=== PATIENT | female | born 1990 | race Caucasian/White ===

== ENCOUNTER → 2018-06-30 10:25 | Outpatient (CLI) | payer MEDICAID, SELFPAY ==
[2018-07-04 11:22] LABS: HPV Reflexed? NOT INDICATED
== END ==
PROVIDERS: Visit Provider Obstetrics & Gynecology
DX: Z12.4 Encounter for screening for malignant neoplasm of cervix (principal); Z01.419 Encounter for gynecological examination (general) (routine) without abnormal findings
CPT/HCPCS: 87624; 88175; G0145

== ENCOUNTER → 2020-05-06 12:51 | Outpatient (CLI) | payer MEDICAID, SELFPAY ==
[2016-05-13 19:23] VITALS: BMI 36.3
[2020-05-06 14:17] LABS: Absolute Neutrophil Count 7.3 X10^3/uL (2.0-7.7); Basophil# 0.05 X10^3/uL; Basophil% 0.5 % (0-1); Eosinophil# 0.09 X10^3/uL; Eosinophils% 0.9 % (0-5); Hematocrit 40.3 % (37-47); Hemoglobin 13.2 g/dL (12.0-15.0); Lymphocyte % 21.3 % (19-41); Mean Corp Hgb Conc 32.8 g/dL (32-36); Mean Corpuscular Hgb 29.3 pg (27.0-32.0); Mean Corpuscular Volume 89.4 fL (81-99); Mean Platelet Vol. 10.8 fl (6.2-12.0); Monocyte# 0.69 X10^3/uL; Monocyte% 6.7 % (0-10); NRBC Flagged by Analyzer 0 % (0-5); Neutrophil % 70.4 % (47-70); Platelet Count 313 K/mm3 (150-450); RBC Distribution Width CV 12.4 % (11.6-14.6); RBC Distribution Width SD 40.6 fl (35.1-43.9); Red Blood Count 4.51 M/mm3 (4.2-5.4); White Blood Count 10.4 K/mm3 (4.4-11.0)
[2020-05-06 14:24] LABS: Color, Urine Yellow (Yellow); Glucose, Dipstick Normal (Normal); Ketone-Dipstick Negative (Negative); Leukocyte Esterase-Dipstick Negative /ul (Negative); Nitrite-Dipstick Negative (Negative); Occult Blood-Urine Negative /ul (Negative); Protein-Dipstick Negative (Negative); Specific Gravity, Urine 1.005 (1.002-1.030); Urine Bilirubin Dipstick Negative (Negative); Urine Clarity Clear (Clear); Urine Urobilinogen Normal (Normal)
[2020-05-06 14:25] LABS: Amphetamine Urine VISTA NEGATIVE (<1000 ng/mL); Barbiturate Urine VISTA NEGATIVE (< 200 ng/mL); Benzodiazepine Urine VISTA NEGATIVE (< 200 ng/mL); Cocaine Urine VISTA NEGATIVE (< 300 ng/mL); Ecstacy Urine VISTA NEGATIVE (< 500 ng/mL); Methadone Urine VISTA NEGATIVE (< 300 ng/mL); PCP Urine VISTA NEGATIVE (< 25 ng/mL); THC Urine VISTA POSITIVE (< 50 ng/mL); Vista UDS pH Range 6
[2020-05-06 14:35] LABS: Thyroid Stim Hormone (TSH) 1.02 uIU/mL (0.358-3.74)
[2020-05-06 15:14] LABS: HIV - WCH Non-Reactive (Nonreactive); Hepatitis B Surface Antigen Non-Reactive (Nonreactive); Hepatitis C Antibody Non-Reactive (Nonreactive)
[2020-05-08 03:06] LABS: Chlamydia By Nucleic Acid AMP Negative (Negative)
[2020-05-08 06:28] LABS: Prenatal RPR NONREACTIVE (NONREACTIVE)
[2020-05-08 06:29] LABS: Gonococcus By Nucleic Acid AMP Negative (Negative)
== END ==
PROVIDERS: Visit Provider Obstetrics & Gynecology
DX: Z11.3 Encounter for screening for infections with a predominantly sexual mode of transmission (principal)
CPT/HCPCS: 36415; 80307; 81002; 82306; 84443; 85025; 86703; 86762; 86803; 87340; 87491; 87591

== ENCOUNTER → 2020-09-02 15:40 | Outpatient (CLI) | payer MEDICAID, SELFPAY ==
[2016-05-13 19:23] VITALS: BMI 36.3
[2020-09-02 17:55] LABS: Hematocrit 35.8 % (37-47); Hemoglobin 11.4 g/dL (12.0-15.0); Mean Corp Hgb Conc 31.8 g/dL (32-36); Mean Corpuscular Hgb 29.4 pg (27.0-32.0); Mean Corpuscular Volume 92.3 fL (81-99); Mean Platelet Vol. 11.1 fl (6.2-12.0); Platelet Count 243 K/mm3 (150-450); RBC Distribution Width CV 13.6 % (11.6-14.6); Red Blood Count 3.88 M/mm3 (4.2-5.4); White Blood Count 9.8 K/mm3 (4.4-11.0)
[2020-09-02 17:58] LABS: Glucose Challenge Gest 1H 50g 111 mg/dL (70-140)
== END ==
PROVIDERS: Visit Provider Obstetrics & Gynecology
DX: Z34.82 Encounter for supervision of other normal pregnancy, second trimester (principal)
CPT/HCPCS: 36415; 82950; 85027

== ENCOUNTER → 2020-10-17 | Outpatient (CLI) | payer MEDICAID, SELFPAY | END | disposition home or self-care (01) | LOC: LABSPEC 11:16 | PROVIDERS: Visit Provider Obstetrics & Gynecology | DX: N30.90 Cystitis, unspecified without hematuria (principal) | CPT/HCPCS: 87086; 87088 ==

== ENCOUNTER → 2020-11-12 | Outpatient (CLI) | payer MEDICAID, SELFPAY ==
[2016-05-13 19:23] VITALS: BMI 36.3
== END | disposition home or self-care (01) ==
LOC: LABSPEC 13:18
PROVIDERS: Visit Provider Obstetrics & Gynecology
DX: Z36.85 Encounter for antenatal screening for Streptococcus B (principal)
CPT/HCPCS: 87081

== ENCOUNTER → 2020-11-26 14:07 | Outpatient (CLI) | payer MEDICAID, SELFPAY | PROVIDERS: Referring Provider Student in an Organized Health Care Education/Training Program; Visit Provider Student in an Organized Health Care Education/Training Program | DX: Z03.818 Encounter for observation for suspected exposure to other biological agents ruled out (principal) | CPT/HCPCS: 87635; C9803; U0002 ==

== ENCOUNTER 2020-12-04 11:25 | Inpatient (IN) | payer MEDICAID, SELFPAY ==
[2016-05-13 19:23] VITALS: BMI 36.3
[2020-12-04] VITALS (39 sets, daily range): BP systolic 95–167; BP diastolic 57–98; PULSE 67–185; TEMP 36.4–37.2; O2SAT 82–100; BMI 35.9
[2020-12-04] MEDS: 0.9% Saline Lock 10 ML Syringe IV (12:12)
[2020-12-04 12:18] LABS: Absolute Neutrophil Count 5.9 X10^3/uL (2.0-7.7); Basophil# 0.02 X10^3/uL; Basophil% 0.2 % (0-1); Eosinophils% 1.1 % (0-5); Hemoglobin 11.5 g/dL (12.0-15.0); Mean Corp Hgb Conc 31.9 g/dL (32-36); Mean Corpuscular Hgb 27.4 pg (27.0-32.0); Mean Corpuscular Volume 85.7 fL (81-99); Monocyte# 0.89 X10^3/uL; Monocyte% 9.7 % (0-10); NRBC Flagged by Analyzer 0 % (0-5); Neutrophil # 5.85 X10^3/uL (2.7-7.7); Neutrophil % 63.7 % (47-70); Platelet Count 271 K/mm3 (150-450); RBC Distribution Width SD 43.4 fl (35.1-43.9); White Blood Count 9.2 K/mm3 (4.4-11.0)
[2020-12-04] MEDS: miSOPROStol 25 MCG TABLET VAGINAL (12:43)
[2020-12-04 13:21] LABS: Amphetamine Urine VISTA NEGATIVE (<1000 ng/mL); Barbiturate Urine VISTA NEGATIVE (< 200 ng/mL); Benzodiazepine Urine VISTA NEGATIVE (< 200 ng/mL); Cocaine Urine VISTA NEGATIVE (< 300 ng/mL); Ecstacy Urine VISTA NEGATIVE (< 500 ng/mL); Methadone Urine VISTA NEGATIVE (< 300 ng/mL); PCP Urine VISTA NEGATIVE (< 25 ng/mL); THC Urine VISTA POSITIVE (< 50 ng/mL); Vista UDS pH Range 6
--- NOTE | 2020-12-04 16:53 | HP.PCM_ITS ---
History and Physical Date of Admission: 12/04/20 HPI: 30-year-old G2, P1 at 39/5 weeks, AMARA 12/06/2020 by LMP, admitted for induction of labor for polyhydramnios at term. Denies leaking of fluid, vaginal bleeding, regular contractions. Reports movement. This is complicated by: Polyhydramnios, resolved on exam yesterday, THC use Obstetrical History G1:05/15/16 VAVD female (SHM) G2: current Past Medical History Anxiety Medications PNV Past Surgical History [place] teeth extraction Social History Tobacco use: Former Alcohol use: Denies Illicit drug use: THC use Labs Blood type: O+ Rubella: Immune Hep B/C: Negative/negative HIV: Negative RPR: Nonreactive 1 hour GTT: Within normal limits GBS: neg 3/10 Allergies NKDA Review of Systems General: alert and oriented HEENT: _denies change of vision Heart/lungs: _denies CP, SOB GI: _denies nausea, vomiting, dysuria, diarrhea MSK: _denies calf pain, tenderness Physical Exam Vital Signs Temp Pulse BP Pulse Ox 12/04/20 16:44 85 131/90 H 12/04/20 12:24 90 120/76 12/04/20 12:18 98.9 F 99 General: a&o x3, NAD HEENT: normocephalic, atraumatic Cardio: no JVD Resp: no increased work in breathing Abdomen: soft, gravid, nontender Extremities: _minimal-moderate edema CE: 3 cm, AROM clear fluids FHT: 115/moderate variability/+ accelerations/no decelerations [place]: Irregular Labs Laboratory Results - last 24 hr 12/04/20 12/04/20 12/04/20 11:50 11:50 12:30 WBC 9.2 RBC 4.20 Hgb 11.5 L Hct 36.0 L MCV 85.7 MCH 27.4 MCHC 31.9 L RDW Std Deviation 43.4 RDW Coeff of Renato 14.0 Plt Count 271 MPV 11.0 Immature Gran % (Auto) 0.300 Neut % (Auto) 63.7 Lymph % (Auto) 25.0 [place] % (Auto) 9.7 Eos % (Auto) 1.1 Baso % (Auto) 0.2 Absolute Neuts (auto) 5.9 Absolute Lymphs (auto) 2.30 Nucleated RBC % 0 Urine Opiates Screen NEGATIVE Urine Methadone Screen NEGATIVE Ur Barbiturates Screen NEGATIVE Ur Phencyclidine Scrn NEGATIVE Ur Amphetamines Screen NEGATIVE U Methamphetamin-MDMA NEGATIVE U Benzodiazepines Scrn NEGATIVE Urine Cocaine Screen NEGATIVE U Cannabinoids Screen POSITIVE H Ur Drug Screen Comment Blood Type O POSITIVE Antibody Screen NEGATIVE Assessment & Plan 30-year-old G2, P1 at 39/5 weeks, AMARA 12/06/2020 by LMP, admitted for induction of labor for polyhydramnios at term. This is complicated by: Polyhydramnios, resolved on exam yesterday, THC use Admit to L&D - Routine labor orders -Cytotec injection, now to switch to Pitocin - GBS negative - CEFM - Anesthesia to see - THC use
[2020-12-04] MEDS: Lactated Ringers 1,000 ML 200 ML IV ×2 (17:15→21:10)
[2020-12-04] MEDS: Oxytocin 30 units/NS 500 ml 30 UNITS/500 ML IV.SOLN IV (17:18)
[2020-12-04] MEDS: Lactated Ringers 500 ML 999 ML IV ×2 (19:05→20:40)
[2020-12-04] MEDS: fentaNYL-bupivacaine (epidural) 100 ML BAG EPIDURAL (20:08)
[2020-12-04] MEDS: Oxytocin 30 units/NS 500 ml 30 UNITS/500 ML IV.SOLN 334 UNITS IV (22:29)
--- NOTE | 2020-12-04 22:39 | PCM.OPRPT ---
Vaginal Delivery Date of Procedure: 12/04/20 Pre-Operative Diagnosis: Term, nonreassuring heart tones Post-Operative Diagnosis: Term, nonreassuring heart tones Surgery/ Procedure Performed: Vacuum Assisted Vaginal Delivery Type of Anesthesia: Epidural Description of Procedure: Procedure: Vacuum-assisted vaginal delivery Surgeon: Jaquan Collier MD Anesthesia: Epidural EBL: 300 cc Patient is: None Findings male infant vertex position, LOT. Apgars 9/9. No lacerations noted. Consent: Patient arrived for induction of labor at term with polyhydramnios found to have recurrent lates noted to be complete and +2 station. Began pushing with contractions found to be making little progress and noted to have recurrent late decelerations along with prolonged decelerations. head was palpated to be in LOT position +2 station. Pelvis was felt to be appropriate for vaginal delivery. The epidural was adequate for pain relief. Discussed vacuum delivery risks with the patient. The patient desired to proceed with the vacuum delivery and understood the risks such as but not limited to cephalhematoma or shoulder dystocia. The process of the vacuum delivery was also explained. Procedure: Bladder was emptied for 25 cc via straight catheter. Vaginal examination reconfirmed LOT position +2 station. Kiwi vacuum device was applied over the sagittal suture and about 3 cm in front of the posterior fontanelle toward the face. Vacuum pressure was created. The edge of the vacuum cup was carefully examined and no maternal tissue was entrapped under the cup. Gentle horizontal traction along the pelvic axis in coordination with uterine contraction maternal pushing was applied. After 1 pull descent was noted. The handle of vacuum device was gradually elevated when the perineum began to bulge. The cup did not pop off of the head throughout the procedure. The cup was removed after the head delivery. Head and shoulders were delivered with ease. Placenta was delivered via fundal traction and cord massage. The cervix and vaginal wall were thoroughly examined. No lacerations were noted. The was examined after delivery. No visible lacerations or bruises were noted.
--- NOTE | 2020-12-04 22:47 | DCINST_ITS ---
<Jaquan Collier - Last Filed: 12/04/20 22:47> Discharge Diet: No Restrictions Discharge Activity: Return to Normal Activity, May Drive, May Shower May resume sexual activity in: 4-6 weeks Weight Bearing Status: Weight bearing as tolerated Call your doctor if your incision/area has: Continuous Slow Oozing, Foul Smelling Discharge Call your doctor if you observe: Fever of 101 or Higher, Shortness of breath, Chest pain Additional Instructions: If you experience any of the following, contact your healthcare provider. * Bleeding that soaks a pad every hour for 2 hours * Fever 100.4 or higher * Unrelieved incision or abdominal pain * Swelling, redness, discharge or bleeding from your incision or episiotomy site * Your incision begins to separate * Problems urinating (including inability to urinate or burning while urinating). * Visual changes * Severe headache * Flu-like symptoms * Pain or redness in one of both of your breasts * Pain, warmth, tenderness or swelling in your legs, especially the calf area * Frequent nausea and vomiting * Symptoms of depression or anxiety If you experience any of the following, call 911 or go to the nearest Emergency Room. * Chest pain * Problems breathing * Seizure activity * Partial or complete paralysis of a body part, slurred speech, weakness or drooping of the face, or a sudden inability to walk or hold your balance Allergies/Adverse Reactions: Allergies No Known Allergies Allergy (Verified 12/04/20 12:04) Medications to take at Discharge Vit Calc,Iron,Folic [ Vitamins] 1 each PO DAILY 03/30/16 Please Follow Up With: Jaquan Collier MD When: 4 to 6 weeks Primary Care Physician: Care Physician,No Primary [Primary Care Provider] - Test Results: Test results from this visit will be discussed in further detail at your follow- up appointment, if applicable. <Ariadne Collier - Last Filed: 12/06/20 04:54> Additional Instructions: If you experience any of the following, contact your healthcare provider. * Bleeding that soaks a pad every hour for 2 hours * Fever 100.4 or higher * Unrelieved incision or abdominal pain * Swelling, redness, discharge or bleeding from your incision or episiotomy site * Your incision begins to separate * Problems urinating (including inability to urinate or burning while urinating). * Visual changes * Severe headache * Flu-like symptoms * Pain or redness in one of both of your breasts * Pain, warmth, tenderness or swelling in your legs, especially the calf area * Frequent nausea and vomiting * Symptoms of depression or anxiety If you experience any of the following, call 911 or go to the nearest Emergency Room. * Chest pain * Problems breathing * Seizure activity * Partial or complete paralysis of a body part, slurred speech, weakness or drooping of the face, or a sudden inability to walk or hold your balance Test Results: Test results from this visit will be discussed in further detail at your follow- up appointment, if applicable.
[2020-12-04] MEDS: Ibuprofen 600 MG Tablet PO (23:32)
[2020-12-05] VITALS (14 sets, daily range): BP systolic 116–134; BP diastolic 64–89; PULSE 77–94; RESP 16–18; TEMP 36.3–37.2; O2SAT 98
--- NOTE | 2020-12-05 04:22 | NURSING ---
Report received from Cesar Rincon RN
--- NOTE | 2020-12-05 07:35 | PN.OBGYN_ITS ---
Subjective: No overnight complaints. Pain well controlled. - Physical Exam Vitals/I&O's: Vital Signs Temp Pulse Resp BP Pulse Ox 97.7 F L 82 16 119/64 98 12/05/20 04:30 12/05/20 04:36 12/05/20 04:30 12/05/20 04:36 12/05/20 04:30 Oxygen Delivery Method Room Air Weight: 209 lb 7.026 oz Body Mass Index (BMI) 35.9 Intake and Output for Last 24 Hours 12/03/20 12/04/20 12/05/20 23:59 23:59 23:59 Intake Total 1908. 333 / 333 Output Total 400 / 400 Balance 1908.1908.23 -67 / -67 General: Alert, Oriented x3, Cooperative, No apparent distress HEENT: Atraumatic Oral: Moist Mucosa Neck: Supple Abdomen: Soft, Non Tender Extremities: No clubbing, No cyanosis, No edema Neurological: Neuro grossly intact Psych/Mental Status: Normal Affect, Appropriate, Alert and oriented to time, place, person, mood and affect Laboratory Results 12/04/20 11:50: WBC 9.2, RBC 4.20, Hgb 11.5 L, Hct 36.0 L, MCV 85.7, MCH 27.4, MCHC 31.9 L, RDW Std Deviation 43.4, RDW Coeff of Renato 14.0, Plt Count 271, MPV 11.0, Immature Gran % (Auto) 0.300, Neut % (Auto) 63.7, Lymph % (Auto) 25.0, [place] % (Auto) 9.7, Eos % (Auto) 1.1, Baso % (Auto) 0.2, Absolute Neuts (auto) 5.9, Absolute Lymphs (auto) 2.30, Nucleated RBC % 0 12/04/20 11:50: Blood Type O POSITIVE, Antibody Screen NEGATIVE 12/04/20 12:30: Urine Opiates Screen NEGATIVE, Urine Methadone Screen NEGATIVE, Ur Barbiturates Screen NEGATIVE, Ur Phencyclidine Scrn NEGATIVE, Ur Amphetamines Screen NEGATIVE, U Methamphetamin-MDMA NEGATIVE, U Benzodiazepines Scrn NEGATIVE, Urine Cocaine Screen NEGATIVE, U Cannabinoids Screen POSITIVE H, Ur Drug Screen Comment Current Medications Acetaminophen (Acetaminophen 500 Mg Tablet) 1,000 mg PO Q8H PRN PRN PRN Reason: Pain Score 1-3 Bisacodyl (Bisacodyl 10 Mg Suppository) 10 mg RC UD PRN PRN Reason: If no BM Dibucaine (Dibucaine 30 Gm Tube) 1 applic TOPICAL TID PRN PRN; Protocol PRN Reason: Discomfort Hydrocortisone (Hydrocortisone 2.5% Crm) 1 applic TOPICAL TID PRN PRN; Protocol PRN Reason: Discomfort Ibuprofen (Ibuprofen 600 Mg Tablet) 600 mg PO Q6H PRN PRN PRN Reason: Pain Score 1-3 Last Admin: 12/04/20 23:32 Dose: 600 mg Documented by: Ondansetron HCl (Ondansetron 4 Mg/2 Ml Vial) 4 mg IV Q4H PRN PRN PRN Reason: Nausea Senna/Docusate Sodium (Senna/Docusate Sodium 1 Tablet) 1 - 2 tablet PO DAILY PRN PRN PRN Reason: Constipation Simethicone (Simethicone 80 Mg Tablet) 80 mg PO PCHS PRN PRN Reason: Indigestion/Stomach pain Sodium Chloride (0.9% Saline Lock 10 Ml Syringe) 5 - 15 ml IV UD PRN PRN Reason: SALINE FLUSH Medical Necessity - Tobacco Use Smoking Status: Former smoker Assessment/Plan All Active Problems Polyhydramnios (Acute) 39 weeks gestation of (Acute) day 1 status post vacuum-assisted vaginal delivery for nonreassuring heart tones. Pain well controlled. Breast-feeding. Evening time delivery, likely home tomorrow.
[2020-12-05] MEDS: Ibuprofen 600 MG Tablet PO (08:00)
[2020-12-06] MEDS: Ibuprofen 600 MG Tablet PO (00:05)
[2020-12-06 02:24] VITALS: BP 128/88; PULSE 78; PULSE 81; RESP 16; O2SAT 99
--- NOTE | 2020-12-06 04:51 | PCM.PN.OB ---
Subjective: day 2. Patient feeling well. No complaints. - Physical Exam Vitals/I&O's: Vital Signs Temp Pulse Resp BP Pulse Ox 98.9 F 81 16 128/88 H 99 12/05/20 20:56 12/06/20 02:24 12/06/20 02:24 12/06/20 02:24 12/06/20 02:24 Oxygen Delivery Method Room Air Weight: 95 kg Body Mass Index (BMI) 35.9 Intake and Output for Last 24 Hours 12/04/20 12/05/20 12/06/20 23:59 23:59 23:59 Intake Total 1908.1908.23 333 / 333 Output Total 400 / 400 Balance 1908. / 1908.23 -67 / -67 General: Alert, Oriented x3, No apparent distress HEENT: Atraumatic, Normocephalic Neck: Supple Lungs: Normal air movement Cardiovascular: Regular rate Abdomen: Soft - Uterus 2 cm below umbilicus Extremities: No edema Neurological: Cranial nerves II-XII grossly intact Psych/Mental Status: Normal Affect, Appropriate, Alert and oriented to time, place, person, mood and affect Current Medications Acetaminophen (Acetaminophen 500 Mg Tablet) 1,000 mg PO Q8H PRN PRN PRN Reason: Pain Score 1-3 Bisacodyl (Bisacodyl 10 Mg Suppository) 10 mg RC UD PRN PRN Reason: If no BM Dibucaine (Dibucaine 30 Gm Tube) 1 applic TOPICAL TID PRN PRN; Protocol PRN Reason: Discomfort Hydrocortisone (Hydrocortisone 2.5% Crm) 1 applic TOPICAL TID PRN PRN; Protocol PRN Reason: Discomfort Ibuprofen (Ibuprofen 600 Mg Tablet) 600 mg PO Q6H PRN PRN PRN Reason: Pain Score 1-3 Last Admin: 12/06/20 00:05 Dose: 600 mg Documented by: Ondansetron HCl (Ondansetron 4 Mg/2 Ml Vial) 4 mg IV Q4H PRN PRN PRN Reason: Nausea Senna/Docusate Sodium (Senna/Docusate Sodium 1 Tablet) 1 - 2 tablet PO DAILY PRN PRN PRN Reason: Constipation Simethicone (Simethicone 80 Mg Tablet) 80 mg PO PCHS PRN PRN Reason: Indigestion/Stomach pain Sodium Chloride (0.9% Saline Lock 10 Ml Syringe) 5 - 15 ml IV UD PRN PRN Reason: SALINE FLUSH Medical Necessity - Tobacco Use Smoking Status: Former smoker Assessment/Plan All Active Problems Polyhydramnios (Acute) 39 weeks gestation of (Acute) 30-year-old day 2 status post vacuum-assisted vaginal delivery. Patient doing well without complaints. Breast-feeding. Home today.
[2020-12-06 07:26] VITALS: BP 140/86; PULSE 78; RESP 16; TEMP 36.9
[2020-12-06 07:27] VITALS: BP 140/86; PULSE 78
--- NOTE | 2020-12-06 11:10 | CASEMGMT ---
Social Work Assessment Labor and Delivery Unit Date of Referral: 12/04/2020 Time of Referral: 12:18 Referred By: Dr. Jaquan Collier Date of Intervention: 12/06/2020 Time of Intervention: 11:10 Reason for Referral: Mother of baby (MOB) with positive THC on admission to labor and delivery unit. History obtained from: MOB, Father of baby (FOB), medical chart, and nursing staff. Household composition: MOB (Harika Muniz) and FOB (Devin Muniz) live together in a private home with daughter Arielle Muniz age 4, FOB?s 9-year-old daughter that does not share maternity with this and Arielle. Along with FOB?s mother and FOB?s 17-year-old brother. Patient's parent/guardian status: MOB and FOB are and have been together for 9 years. MOB reports that was no planned but accepted. FOB and MOB both report a connection with infant. Medical History: MOB with vaginal delivery at 39 weeks. MOB prior to this infant, Otto Muniz. MOB with history of Anxiety and Depression. MOB with appropriate care visits. born on 12/04/2019 with apgars of 9 and 9 at 1min and 5min and weight of 3.64kg. to follow with Dr. Lanier in the community. MOB plans to bottle feed . Educational Status: MOB denies any issues with comprehension or understanding. Financial Status: MOB and FOB deny any financial concerns. Infant Supplies: MOB reports to have all needed infant supplies including a car seat and crib. Childcare/Caregiver(s): MOB plans to be primary caregiver for until returning to work. When MOB returns to work plan is for MOB?s mother to have children. Other children in the home are currently with MOB?s mother. Transportation: MOB denies any issues with transportation. Programs/Agencies Involved: MOB reports to receive foot stamps and to be connected with [facility]. Children Services/Legal Issues: MOB denies any children services involvement currently or in the past. Mental Health History: MOB reports history of Anxiety and Depression. MOB openly reports to have used THC to manage Anxiety during , ?it was the only thing that helped.? MOB denies any history of counseling or medications to manage mental health. This social media marketing analyst broached topic of counseling services and possibly exploring medication to manage mental health. MOB reports ?I am feeling good now.? MOB declining counseling and not sure about talking with doctor about medication management. Patient reports to currently not be using THC. MOB aware of positive THC results on admission to labor and delivery unit. This social media marketing analyst able to have conversation with MOB about signs and symptoms of depression. MOB reports to have a history of depression with first and to find positive support from FOB. MOB points to FOB and states ?he is my counselor.? FOB confirms by nodding head up and down in a ?yes.? MOB denies any suicidal thoughts or history of. MOB reports to have needs support in the community and to feel that MOB will reach out if ?I need to.? Substance Use History: MOB admits to THC as seen above. MOB reports plan to discontinue use of THC. MOB does plan to bottle feed infant and is aware of risk to infant of and using THC or any other substance. MOB reports that if MOB would return to using THC plan would be to not use around children and to leave children in the care of a responsible adult if MOB plans to use THC. MOB denies any other substance abuse/use. FOB also denies any substance abuse/use. There is no smoking in the home per MOB. Maternal and Infant Drug Screens: MOB with positive tox screen for THC on 12/04/2020 and 05/06/2020. with negative urine tox screen and currently pending meconium. PHQ9: MOB did not trigger. Family/Social Stressors: MOB reports current social stressor of FOB?s mother living with MOB and FOB as FOB?s mother has dementia. FOB reports plan for FOB?s mother to move into an assisted living but that a Medicaid waiver will need to be set up first. MOB and FOB both report to be hopeful that FOB?s mother will be transitioning to assisted living ?soon.? No other stressors identified. Support Systems: MOB reports positive support from family and friends. Depression and Anxiety/Shaken Baby/Safe Sleeping: MOB provided with resources on Depression/Anxiety, Shaken Baby, and Safe Sleeping as well as [facility] general resources. MOB responding appropriately to prompts for safe sleeping and shaken baby. ASSESSMENT: This social media marketing analyst met with MOB and FOB in room. Infant currently in nursery for testing. Plan is for to discharge to home with MOB and FOB. MOB and FOB report a connection to and to be ?excited? about discharge to home today. Active support and listening provided. Safe Plan of Care for related to substance use: MOB plans to discontinue THC but reports that if MOB would return to using THC plan would be to not use around the children and to continue with bottle feeding of . PLAN: Infant to discharge to home with MOB, FOB and other family members. Pending meconium. Will continue to follow and make referrals as indicated. Anastacia Mancera MSW, CONNIES
[2020-12-06 12:39] VITALS: BP 141/91; PULSE 97
[2020-12-06 12:40] VITALS: BP 141/80; PULSE 102; PULSE 97; RESP 16; TEMP 36.7; O2SAT 98
--- NOTE | 2020-12-08 13:35 | CASEMGMT ---
Social Work Telephone call to [facility], Silvina. Report due to MOB with positive tox screen on admission and during for Marijuana. This social service director with no other concerns identified. Currently pending meconium results for infant. Infant urine tox screen is negative. Silvina reports unable to open case until positive tox screen obtained for but will take the information down. Social work to continue to follow and make referrals as indicated. Anastacia Mancera MSW, BERTIN-S
== END 2020-12-06 12:50 | disposition home or self-care (01) | DRG 560 ==
PROVIDERS: Admitting Provider Obstetrics & Gynecology; Referring Provider Obstetrics & Gynecology; Visit Provider Obstetrics & Gynecology
DX: O40.3XX0 Polyhydramnios, third trimester, not applicable or unspecified (principal); O76 Abnormality in fetal heart rate and rhythm complicating labor and delivery; O99.324 Drug use complicating childbirth; F12.90 Cannabis use, unspecified, uncomplicated; O99.214 Obesity complicating childbirth; E66.01 Morbid (severe) obesity due to excess calories; Z87.891 Personal history of nicotine dependence; Z3A.39 39 weeks gestation of pregnancy; Z37.0 Single live birth
CPT/HCPCS: 59025; 59050; 80307; 85025; 86850; 86900; 86901; 99218; J7120; A4216; G0378

== ENCOUNTER → 2021-01-12 | Outpatient (CLI) | payer MEDICAID, SELFPAY ==
[2020-12-04 12:03] VITALS: BMI 35.9
[2021-01-14 16:47] LABS: HPV Reflexed? NOT INDICATED
== END | disposition home or self-care (01) ==
LOC: LABSPEC 11:28
PROVIDERS: Visit Provider Student in an Organized Health Care Education/Training Program
DX: Z12.4 Encounter for screening for malignant neoplasm of cervix (principal)
CPT/HCPCS: 88175; G0145

== ENCOUNTER 2022-12-27 11:59 | Day surgery (SDC) | payer MEDICAID, SELFPAY ==
[2022-12-21 11:02] LABS: Hematocrit 40.5 % (37-47); Mean Corp Hgb Conc 32.1 g/dL (32-36); Mean Corpuscular Volume 90.4 fL (81-99); Mean Platelet Vol. 10.8 fl (6.2-12.0); Platelet Count 294 K/mm3 (150-450); RBC Distribution Width CV 13.8 % (11.6-14.6); RBC Distribution Width SD 45.6 fl (35.1-43.9); Red Blood Count 4.48 M/mm3 (4.2-5.4); White Blood Count 8.4 K/mm3 (4.4-11.0)
[2022-12-27] VITALS (8 sets, daily range): BP systolic 103–118; BP diastolic 61–79; PULSE 65–85; RESP 16–18; TEMP 36.4–36.9; O2SAT 96–100; BMI 25.0
--- NOTE | 2022-12-27 | FALS_PTH ---
PATIENT: NEELIMA LAUREANO LOC: [facility] [place] U#:[id number] AGE/SX: 32/F ROOM: RE12/27/[address]: Dr. Jaquan Collier MD : 1990 BED: DIS: 12/27/2022 SPEC #: [id number] RECD: 12/27/22 16:24 STATUS: SUZI RESue #: [id number] TAYLOR: 12/27/22 00:[address]: Jaquan Collier DEPT: SURGICAL PATHOLOGY RECD BY: Jesus Encarnacion ENTERED: 12/28/22 09:29 SP TYPE: FALL TUBES OTHR DR: Jeff Stafford PA-C Tissues: Fallopian tube Procedures: Surgery Specimen Level IV HEADER OPERATION: Laparoscopic salpingectomy PRE-OP DIAGNOSIS: Sterilization TISSUE SUBMITTED: Fallopian tubes MICROSCOPIC DIAGNOSIS Right and left fallopian tubes, salpingectomies: Two complete cross-sections of fallopian tubes with benign paratubal cysts. AM:andrei 12/29/2022 MICROSCOPIC DESCRIPTION Slides are reviewed. GROSS DESCRIPTION Received in fixative is one container labeled with the patient's name and designated bilateral fallopian tubes. The specimen consists of two fallopian tubes with an average length of 6.0 cm and has an average diameter of 0.8 cm. Both fallopian tubes have normal fimbriated ends. No mass lesions are identified. Both fallopian tubes have paratubal cysts ranging in size from 0.5 to 1.2 cm adjacent to the fimbrial end. Sweet Pickled Fruit Maker sections are submitted in two cassettes as follows: 1 - one fallopian tube and cyst, 2??the other fallopian tube and cyst. / AM:andrei 12/28/2022 TC:5 CPT: 26333 x2
[2022-12-27 12:28] LABS: Internal QC Validated? YES +Cl - CLEAR BKGD; Pregnancy, Urine Negative Negative
[2022-12-27] MEDS: Lactated Ringers 1,000 ML 15 ML IV (12:39)
--- NOTE | 2022-12-27 13:08 | HP.PCM.OB_ITS ---
History and Physical Date of Admission: 12/27/22 Chief complaint: Desires permanent sterilization History present illness: 32-year-old arrives for laparoscopic tubal ligation. No medical changes since last seen. All questions answered and consent signed. Obstetric history: with a history of vaginal deliveries Past medical history: Anxiety depression Medications: Prozac, Sprintec Allergies: No known drug allergies Past surgical history: [place] teeth extraction Social history: 1 pack/day smoker, denies alcohol or drug use Family history: Denies history DVT or PE Review of systems: Besides above pertinent positives a full review of systems was performed and found to be negative Physical exam: Vitals: Blood pressure 112/70 pulse 65 respiratory rate 16 temperature 98.5 ?F SPO2 100% on room air General: Normal-appearing no acute distress HEENT: Normocephalic/atraumatic no cervical adenopathy Cardiac/respiratory: No use accessory muscles, nonlabored breathing Abdomen: Soft, nontender, nondistended Extremities: No peripheral edema normal peripheral pulses Psych: Normal affect and demeanor nonpressured speech Labs: Urine test negative Assessment and plan: 32-year-old arrives for laparoscopic tubal ligation for desired permanent sterilization. Patient or stands risks of the procedure include but are not limited to visceral or vascular injury, prolonged hospitalization, blood loss need for transfusion, reoperation. Patient state understanding wish to proceed. All questions were answered and consent was signed
--- NOTE | 2022-12-27 14:27 | OP.PCM_ITS ---
Report of Operation Date of Procedure: 12/27/22 Pre-Operative Diagnosis: Desires permanent sterilization Post-Operative Diagnosis: Desires permanent sterilization Surgery/Procedure Performed:: Laparoscopic bilateral salpingectomy Description of Surgical Findings:: Surgeon: Jaquan Colleir MD Anesthesia: General EBL: 5 cc Urine output: 100 cc none IV fluids: 500 cc Complications: None Specimen: Bilateral fallopian tubes Findings: Left fallopian tube with paratubal cyst, removed. Otherwise normal uterus, tubes, and ovaries. Consent: Patient desires permanent sterilization elects for laparoscopic bilateral salpingectomy. Patient understands risk of the procedure include but are not limited to visceral or vascular injury, prolonged hospitalization, blood loss need for transfusion, reoperation. Patient state understanding wish to proceed. All questions were answered and consent was signed. Procedure: Patient was brought back to the OR where general anesthesia was found to be adequate. Patient was paired and draped in dorsolithotomy position with yellowfin stirrups. A weighted speculum is placed in the posterior aspect of vagina and cervical dilators were used to dilate the cervix. Uterine manipulator was placed. Varies needle was inserted at the umbilicus and water safety test was passed. Abdomen was insufflated. 5 mm supraumbilical midline trocar was inserted under direct visualization. Laparoscope was inserted and above findings were noted. Left lower quadrant 5 mm trocar was inserted under direct visualization. Right lower quadrant 8 mm trocar was inserted under direct visualization. Using atraumatic grasper and the LigaSure device the left fallopian tube with the above findings of a paratubal cyst was identified out to the fimbria and the mesosalpinx was cut and cauterized, fallopian tube was trans ected at the cornua, the tube was removed from abdominal cavity and sent to pathology. Good hemostasis was noted. Right fallopian tube was identified to the fimbria and the mesosalpinx was cut and cauterized, fallopian tube was transected at the cornua, right fallopian tube was sent to pathology. Good hemostasis was noted. Good hemostasis was noted bilaterally. Abdomen was desufflated, trocars removed under direct visualization, good hemostasis was noted. Trocar sites were reapproximated with subcutaneous suture and skin glue over top of the incision. Good hemostasis was noted. All counts were correct x2. Patient tolerated procedure well and was brought to recovery in a stable condition. correctional therapy director: Candida Baxter
--- NOTE | 2022-12-27 14:27 | DCINST_ITS ---
Discharge Instructions Diet Discharge Diet: No restrictions Activity Discharge Activity: Return to Normal Activity, May Drive, May Shower and - (No tub baths for 2 weeks) May resume sexual activity in: 4-6 weeks Lifting Restrictions: No lifting over 25 pounds for 2 to 3 weeks Dressing / Incision Call your doctor if your incision/area has: Continuous Slow Oozing and Foul Smelling Discharge Call your doctor if you observe: Fever of 101 or Higher, Shortness of breath and Chest pain Follow Up Care Please Follow Up With: Jaquan Collier MD When: 2 weeks postoperatively Test Results: Test results from this visit will be discussed in further detail at your follow- up appointment, if applicable. Discharge Plan Admission Attending Provider: Jaquan Collier Primary Care Provider: Jeff Satfford Discharge Orders/Prescriptions Prescriptions: No Action norethind[facility] 1 mg-20 mcg (21)/75 mg (7) tablet 1 tab PO DAILY fluoxetine 40 mg capsule 40 mg PO DAILY fluoxetine 20 mg capsule 20 mg PO DAILY Referrals / Follow Up: Jeff Stafford PA-C [Primary Care Provider] - Disposition Disposition (needs filled in before D/C Order can be placed): Home, Self Care
[2022-12-27] MEDS: Ketorolac 30 MG/ML Syringe IV (14:44)
[2022-12-27] MEDS: oxyCODONE 5 MG Tablet PO (16:09)
== END 2022-12-27 16:17 | disposition home or self-care (01) ==
LOC: SDC 12:01 → AC 12:03
PROVIDERS: Anesthesiology; PCP Physician Assistant; Referring Provider Obstetrics & Gynecology; Visit Provider Obstetrics & Gynecology
PROC: (CPT 58661; principal; 2022-12-27 13:20)
DX: Z30.2 Encounter for sterilization (principal); N83.8 Other noninflammatory disorders of ovary, fallopian tube and broad ligament; F17.200 Nicotine dependence, unspecified, uncomplicated
CPT/HCPCS: 58661; 00840; 88302; 36415; 81025; 85027; 86850; 86900; 86901; 88305; J7120; J2405